=== PATIENT | male | born 1970 | race Caucasian/White ===

== ENCOUNTER → 2020-08-26 09:03 | Outpatient (CLI) | payer OTHER, SELFPAY ==
[2020-08-26 11:07] LABS: COVID19 -Nasal RAPID Negative (Negative)
== END ==
PROVIDERS: Visit Provider Physician Assistant
DX: Z20.828 Contact with and (suspected) exposure to other viral communicable diseases (principal)
CPT/HCPCS: 87635

== ENCOUNTER 2020-08-27 09:43 | Day surgery (SDC) | payer OTHER, SELFPAY ==
[2020-08-26 15:00] VITALS: BMI 29.0
[2020-08-27] VITALS (8 sets, daily range): BP systolic 132–157; BP diastolic 84–108; PULSE 76–114; RESP 11–18; TEMP 36.5–36.7; O2SAT 93–98; BMI 29.0
[2020-08-27] MEDS: LACTATED RINGERS 1,000 ML 42 ML IV (10:30)
[2020-08-27] MEDS: MIDAZOLAM 2 MG/2 ML VIAL IV (10:49)
--- NOTE | 2020-08-27 11:00 | SUR.PREOP ---
Block start time [1050] . Monitoring initiated and maintained throughout procedure. Oxygen and medications given per anesthesiologist instructions. Patient remained stable throughout procedure, no adverse reactions noted. Block end time [1100].
[2020-08-27] MEDS: CEFAZOLIN 2 GM/100 ML FROZ.PIGGY IV (11:03)
--- NOTE | 2020-08-27 11:37 | SUR.OPER ---
Beach chair with Maquet shoulder positioner. Lower body on padded OR bed. Head in foam padded head cradle, secured with straps. Non-operative arm secured <90 degrees abduction. Pillow under knees. Safety belt at thigh. Cloth tape over blanket over lower legs.
[2020-08-27] MEDS: BUPIVACAINE 0.5% W/ EPI (PF) 30 ML VIAL INJ (11:48)
[2020-08-27] MEDS: SODIUM CHLORIDE IRRIG SOLUTION 3,000 ML, EPINEPHrine 1 MG IRR (11:49)
--- NOTE | 2020-08-27 11:52 | P.PCN_ITS ---
Procedures Date/Time Date of procedure: 08/27/20 Time of procedure: 11:00 Nerve Block Time out performed: Yes Local anesthetic used: other (15mL 0.5opivacaine, 5mL 2* idocaine) Location of anesthetic used: interscalene Amount of anesthesia used (mL): 20 Nerve blocks: brachial plexus (interscalene) Procedure successful: Yes Patient tolerated procedure: well Complications: none Additional comments: Brachial plexus nerve block for post operative pain management. Risks and benefits discussed, including bleeding, infection, intravascular injection, nerve damage, block failure. Standard ASA monitors, NC O2. Pt supine. Chloroprep site preparation, sterile technique. Brachial plexus identified with US guidance, traced from supraclavicular to interscalene. 1mL 2% lidocaine skin wheal. 22g x 50mm Pajunk advanced with in-plane US guidance to brachial plexus. Negative aspiration. LA injected with intermittent negative aspiration. Good LA spread noted on US. No pain, no paraesthesia. Pt tolerated procedure well. Vital signs stable.
--- NOTE | 2020-08-27 13:35 | PM.OP.1 ---
Operative Date/Time/Diagnoses Date of procedure: 08/27/20 Time of procedure: 11:30 Pre-op diagnosis: Massive rotator cuff tear right shoulder Post-op diagnosis: same Procedure & Clinicians Procedure: Arthroscopic extensive debridement as well as subacromial decompression. Open repair of chronic massive rotator cuff tear with arthroscopic assistance. Same procedure as scheduled: Yes Indications: Massive tear to the right rotator cuff Surgeon: Cory Gomez Electronic Wirer: Sailaja Cotter Anesthesia Type: General and Peripheral nerve block Operative Notes Findings: Massive tear to the right rotator cuff involving the entire supraspinatus and infraspinatus with retraction to the glenoid rim. Some signs of a high riding humeral head. Patient had a large U shaped tear. No sign of any tearing minor subscapularis tearing. No sign of any proximal biceps tear or synovitis. 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 Closure Type: primary Specimen(s): none sent Applied: implant(s) (One corkscrew anchor and 2 lateral SwiveLock anchors) Estimated Blood Loss (mL): 10 Blood products transfused: none Procedure in detail: On date of service, Patient was met in the holding area. The operative site was signed and witnessed by the OR staff. The surgeries once again discussed with the patient and any remaining questions they had were answered fully. Patient was taken back to the operating theater and placed on the operating table in a supine position. Great care was taken to ensure that all bony prominences were properly padded. Patient was then placed into the beach chair position. The head and neck were properly positioned and secured. A timeout was performed verifying patient's name, procedure, and the operative site. The upper extremity was then prepped and draped in the normal sterile fashion. Previously, the bony anatomy and portal sites were marked out as well as injected with Marcaine with epinephrine. An 11 blade was used to make an incision in the posterior aspect of the shoulder. The camera was placed, and a diagnostic shoulder scope was performed. Findings listed above. Next under direct visualization, a anterior portal was made. Shaver was brought in and extensive debridement of the glenohumeral joint was performed. Patient had significant amount of degenerative changes to the labral tissue. The residual tissue of the biceps tendon was debrided with a shaver. Once all the degenerative tissue in the glenohumeral joint was removed we then turned our attention to the subacromial space. Next the camera was placed into the subacromial space. A lateral portal was obtained under direct visualization. A combination of the shaver and vapor wand, a debridement of the inflamed tissue as well as inflamed bursa was performed. The lateral gutter was also cleaned out. This gave us good visualization of the bursal aspect of the rotator cuff as well as the acromial arch. As mentioned above, patient had complete tear of the supraspinatus and infraspinatus. The entire humeral head was exposed. The torn edge of the rotator cuff showed quite a bit of degenerative changes but the remaining rotator cuff tissue was still quite robust and healthy. There was limited excursion of the rotator cuff. Combination of the liberator in the shaver was used to free up any scarring both bursal and articular sided. This helped improve the overall excursion but still could not bring the entire cuff back to its footprint. But it was felt that it might be possible to do a [id number] repair making the very large U tear smaller with possible repair back to the rotator cuff footprint. Was at this point it was decided to convert over to an open procedure. An anterior lateral incision was used basically extending from our anterior lateral portal. Ten blade was used to incise through skin and fascial tissue. Electrocautery was used to achieve hemostasis. Continued sharp dissection was performed until the deltoid fascia was visualized. We could see our opening into the deltoid from our anterior lateral portal. This was extended both distally and proximally giving us good visualization of the humeral head as well as the subacromial space. Using a Hatfield elevator the rotator cuff was freed of any adhesions both articular sided as well as bursal sided. Traction sutures were placed. Patient had A U shaped tear which was amenable to a [id number] repair. Using multiple FiberTape sutures, a [id number] repair was performed. For the most medial sutures this was done with some arthroscopic guidance for better visualization. This allowed us to pass the sutures into the more medial aspect of the supraspinatus and infraspinatus to bring those together 1st. As we moved more laterally, visualization became easier and the arthroscopic camera was not needed. This helped convert that rather large U shaped tear to a much smaller almost a v-shaped tear. We are now able to repair the remaining torn portions back to the rotator cuff footprint using a double row repair. Combination of the rongeur and bur were used to decorticate the rotator cuff footprint. Double row repair was performed of the supraspinatus and infraspinatus forming a secure repair as well as covering the humeral head which was previously almost completely exposed. A corkscrew anchor was placed medially and 2 sutures were placed into the infraspinatus and tied down another 2 sutures were placed into the supraspinatus and tied down. One limb from each was placed into an anchor giving us a joanna-cross pattern and allowing us to perform a spin speed bridge type repair to the remaining supraspinatus and supraspinatus. After this the humeral head was now completely covered and it seemed to help improve some of the superior migration. Camera was placed back in to allow us to get a better visualization of the more medial aspect of the rotator cuff. [id number] repair was still intact in the entire humeral head was now covered. Shoulder was taken through range of motion. Good overall repair and coverage of the rotator cuff and humeral head. Wound was copiously irrigated then closed in a layered fashion. Deltoid fascia was repaired using FiberWire. This gave a good solid repair of the split that was made in the deltoid fascia. Shoulder was cleaned dried dressed patient was extubated and taken to the PACU in stable condition. Complications: none Post-operative Condition: stable Disposition: PACU Plan for aftercare: Patient will need to be in a sling with an abduction pillow for the next 6 weeks.
== END 2020-08-27 15:00 | disposition home or self-care (01) ==
PROVIDERS: PCP Family Medicine; Referring Provider Orthopaedic Surgery; Visit Provider Orthopaedic Surgery
PROC: (CPT 29805; principal; 2020-08-27 11:15)
PROC: (CPT 23410; 2020-08-27 11:15)
DX: M75.121 Complete rotator cuff tear or rupture of right shoulder, not specified as traumatic (principal); Z72.0 Tobacco use; W17.89XA Other fall from one level to another, initial encounter; Y93.H3 Activity, building and construction; Y92.821 Forest as the place of occurrence of the external cause
CPT/HCPCS: 23410; 29822; 29826; 64450; J0171; J0690; J1100; J2250; J2405; J2704; J3010